=== PATIENT | female | born 1990 | race Caucasian/White ===

== ENCOUNTER → 2021-08-22 | Day surgery (SDC) | payer OTHER ==
[~2021-08-22] VITALS: Ht 152.4 cm; Wt 70.3 kg
[~2021-08-22] MED LIST: MOTRIN600 MG PO; PERCOCET 5-3251 EACH PO; VENLAFAXINE HCL75 M1 PO
[2021-08-22 08:30] LABS: HCT 40.3 % (37.0-47.0); HGB 13.6 g/dl (12.5-16.0); MCH 30.6 pg (25.0-31.0); MCHC 33.7 g/dL (32.0-36.0); MCV 90.8 fL (78.0-100.0); MPV 8.7 fL (6.0-9.5); RBC 4.44 M/uL (4.20-5.40); RDW 11.8 % (11.5-14.0); WBC 7.2 K/uL (4.0-10.5)
== END | disposition home or self-care (01) ==
LOC: FAS 07:55
PROVIDERS: Obstetrics & Gynecology
DX: A58 Granuloma inguinale (principal); R10.2 Pelvic and perineal pain; E78.00 Pure hypercholesterolemia, unspecified; E78.5 Hyperlipidemia, unspecified; F41.9 Anxiety disorder, unspecified; F32.9 Major depressive disorder, single episode, unspecified; Z87.42 Personal history of other diseases of the female genital tract; Z80.3 Family history of malignant neoplasm of breast; Z90.710 Acquired absence of both cervix and uterus; Z90.49 Acquired absence of other specified parts of digestive tract; Z79.899 Other long term (current) drug therapy
CPT/HCPCS: 36415; 86850; 86900; 86901; J1100; J1170; J1885; J2250; J2405; J2704; J2710; J3010; J7120